=== PATIENT | male | born 1960 | race Two or more races ===

== ENCOUNTER 2018-04-27 07:27 | Outpatient (CLI) | payer OTHER ==
[~2018-04-27 07:27] MED LIST: ADVIL100 M1; ALTACE10 MG; BENTYL10 MG/ML; CLARINEX-D 11 BOTTLE; Folic Acid PO; INTESTINEX1 CA1 PO; LEVSIN0.125 MG PO; METOPROLOL SUCC50 MG; PEPCID20 MG PO; PREVACID15 MG; PREVACID30 MG PO; PRILOSEC10 M1; PROTONIX40 MG PO; Prednisone PO; QUESTRAN LIGHT PO; SYNTHROID88 MCG; Synthroid 112MCG TABLET PO; TYLENOL EXTRA500 MG; ULTRACET PO; ZANTAC300 MG PO; ZOFRAN4 MG PO; Zolpidem Tartrate 5MG PO
== END 2018-04-27 07:29 | disposition home or self-care (01) ==
LOC: SONOGRAMA 07:27
DX: K51.90 Ulcerative colitis, unspecified, without complications (principal); E03.8 Other specified hypothyroidism; I10 Essential (primary) hypertension

== ENCOUNTER 2018-05-21 09:11 | Outpatient (CLI) | payer OTHER | END 2018-05-21 09:20 | disposition home or self-care (01) | LOC: LAB 09:11 | DX: D51.1 Vitamin B12 deficiency anemia due to selective vitamin B12 malabsorption with proteinuria (principal); D51.0 Vitamin B12 deficiency anemia due to intrinsic factor deficiency ==

== ENCOUNTER 2018-10-23 03:51 | Emergency (ER) | payer OTHER ==
[~2018-10-23] VITALS: Ht 185.4 cm; Wt 95.3 kg
[2018-10-23] MEDS ORDERED: SYNTHROID150 MCG (04:03)
[2018-10-23] MEDS ORDERED: ENTYVIO300 MG (04:05)
== END 2018-10-23 10:54 | disposition home or self-care (01) ==
LOC: ER 03:51
DX: N28.1 Cyst of kidney, acquired (principal); R10.84 Generalized abdominal pain

== ENCOUNTER 2019-11-07 09:20 | Outpatient (CLI) | payer OTHER ==
[~2019-11-07 09:20] MED LIST changes: +ENTYVIO300 MG; +SYNTHROID150 MCG
== END 2019-11-07 09:39 | disposition home or self-care (01) ==
LOC: SONOGRAMA 09:20 → MAMO-SONO 09:45
PROVIDERS: ATTEND Urology
DX: N40.1 Benign prostatic hyperplasia with lower urinary tract symptoms (principal)

== ENCOUNTER 2019-12-05 03:09 | Inpatient (IN) | payer OTHER ==
[~2019-12-05] VITALS: Ht 182.9 cm; Wt 95.3 kg
--- NOTE | 2019-12-05 03:15 | NUR ---
SE RECIBE MASCULINO ALERTA Y ORIENTADO POR RANJIT ESFERAS, AMBULANDO. REFIERE QUE PRESENTA DOLOR ABDOMINAL EPIGASTRICO CON UN EPISODIO DE VOMITOS Y PABLO DE DIARREAS DESDE TRENT EN LA TARDE.
--- NOTE | 2019-12-05 03:47 | NUR ---
SE RECIBE PACIENTE ALERTA Y ORIENTADO EN COMPANIA DE FAMILIAR EVALUADO POR EL SE ORIENTA A PACIENTESOBRE TRATAMIENTO MEDICO SE EXTRAEN MUESTRAS DE JUNG Y SE ADMINISTRAN MEDICAMENTOS LIBBY ORDEN MEDICA BAJO MEDIDAS ASEPTICAS. SE CANALIZA PACIENTE EN MANO IZQUIERDA #[id number]. SE NAVJOT A PACIENTE EN CAMA BAJO OBSERVACION POR CAMBIOS EN ROBLES CONDICION.
--- NOTE | 2019-12-05 07:34 | NUR ---
PACIENTE ALERTA Y ORIENTADA EN JOHN RANJIT ESFERAS, PRESENTA BUEN PATRON RESPIRATORIO Y UZAIR DE DOLOR. CANALIZADO EN BRAZO LT PATENTE Y UZAIR DE S/S DE FLEBITIS E INFILTRACION, RECIBIENDO 0.9% NSS A 150 ML/HR. PENDIENTE LECTURA DE RADIOLOGO DE CT SCAN ABD/PELV.
== END 2019-12-06 12:47 | disposition home or self-care (01) | DRG 342 ==
LOC: ER 03:09 → SURG 08:54 → SEC-K 08:54 → O/R 13:05 → SURG 13:35
PROVIDERS: ADMIT Surgery; ATTEND Surgery
PROC: BW21YZZ Computerized Tomography (CT Scan) of Abdomen and Pelvis using Other Contrast (ICD-10-PCS; 2019-12-05)
PROC: 0DTJ4ZZ Resection of Appendix, Percutaneous Endoscopic Approach (ICD-10-PCS; principal; 2019-12-05 09:00)
DX: K35.80 Unspecified acute appendicitis (principal); K51.90 Ulcerative colitis, unspecified, without complications; E03.9 Hypothyroidism, unspecified; N28.1 Cyst of kidney, acquired; Z20.828 Contact with and (suspected) exposure to other viral communicable diseases

== ENCOUNTER 2024-05-16 10:24 | Outpatient (CLI) | payer OTHER ==
[2024-05-16 10:58] LABS: HEMATOCRIT 42.8 % (39.0-48.0); HEMOGLOBIN 14.9 g/dL (13-16.00); MEAN CELL VOLUME 90.4 fL (80.0-100.00); MEAN CORPUSCULAR HEMOGLOBIN 31.5 pg (27.00-32.0); MEAN CORPUSCULAR HGB CONC 34.8 g/dl (32.0-36.0); PLATELET COUNT 243 K/uL (150-450); RED BLOOD COUNT 4.73 M/uL (4.00-6.00); RED CELL DISTRIBUTION WIDTH 13.9 % (11.5-14.5)
[2024-05-16 11:48] LABS: ALBUMIN 3.4 gm/dL (3.4-5.0); BILIRUBIN TOTAL 0.79 mg/dL (0.3-1.2); CALCIUM 8.8 mg/dL (8.5-10.1); CREATININE SERUM 1.06 mg/dL (0.70-1.30); GFR 70.34; GLOBULINA 3.3 G/DL (2.4-3.5); POTASSIUM 3.86 mEq/L (3.5-5.1); TOTAL PROTEIN 6.7 gm/dL (6.4-8.2)
== END 2024-05-16 10:30 | disposition home or self-care (01) ==
LOC: LAB 10:24
PROVIDERS: ATTEND Internal Medicine Gastroenterology
DX: K51.811 Other ulcerative colitis with rectal bleeding (principal); K51.011 Ulcerative (chronic) pancolitis with rectal bleeding; K51.80 Other ulcerative colitis without complications; D12.4 Benign neoplasm of descending colon; K51.90 Ulcerative colitis, unspecified, without complications; D12.5 Benign neoplasm of sigmoid colon; K29.40 Chronic atrophic gastritis without bleeding; D13.1 Benign neoplasm of stomach; K29.30 Chronic superficial gastritis without bleeding; K51.00 Ulcerative (chronic) pancolitis without complications